=== PATIENT | female | born 1970 | race Caucasian/White ===

== ENCOUNTER → 2020-07-07 | Outpatient (CLI) | payer BC ==
--- NOTE | 2020-07-09 13:48 | RAD ---
DATE: 07/07/2020 11:12 AM EXAM: MAMMO REGINO SCREENING BILATERAL HISTORY: Screening COMPARISON: 06/12/2018, 06/21/2014 Bilateral CC and MLO views of the breasts were performed. Bilateral breast tomosynthesis was performed in CC and MLO projections. This study was interpreted with the benefit of Computerized Aided Detection (CAD). FINDINGS: Breast Density: HETERO The breast parenchyma Is heterogeneously dense, which could reduce sensitivity of mammography. Breast parenchyma level C Negative right mammogram. Left mammogram shows an asymmetry in the central posterior left breast on the CC view that needs additional imaging with spot compression view and a full-field lateral view, with possible additional ultrasound. IMPRESSION: Incomplete. Left breast needs additional imaging. BI-RADS CATEGORY: 0 INCOMPLETE: NEEDS ADDITIONAL IMAGING EVALUATION AND/OR PRIOR MAMMOGRAMS FOR COMPARISON. RECOMMENDED FOLLOW-UP: ADD ADDITIONAL IMAGING The patient will be contacted to return for additional imaging and a supplemental report will follow. PQRS compliance statement: Patient information was entered into a reminder system with a target due date for the next mammogram. Mammography is a sensitive method for finding small breast cancers, but it does not detect them all and is not a substitute for careful clinical examination. A negative mammogram does not negate a clinically suspicious finding and should not result in delay in biopsying a clinically suspicious abnormality. "Our facility is accredited by the [employer] Mammography Program."
== END ==
LOC: MAMMO 11:03
PROVIDERS: ATTEND Physician Assistant
DX: Z12.31 Encounter for screening mammogram for malignant neoplasm of breast (principal)
CPT/HCPCS: 77063; 77067

== ENCOUNTER → 2020-07-21 | Outpatient (CLI) | payer BC ==
--- NOTE | 2020-07-21 14:33 | RAD ---
Examination: 1. Left digital diagnostic mammogram. 2. Targeted left breast ultrasound INDICATION: Screening recall for asymmetry in the posterior superior left breast. COMPARISON: 07/07/2020 TECHNIQUE: A full field left ML view was obtained in addition to a left CC spot compression view. Targeted ultrasound of the superior left breast was subsequently pursued. FINDINGS: Heterogeneously dense breast parenchyma. The questioned asymmetry changes configuration in a pattern compatible with overlap of fibroglandular tissue. Targeted ultrasound superior left breast revealed no suspicious sonographic findings no definite sonographic correlate to the questioned area of asymmetry on an initial screening mammogram. IMPRESSION: Probably benign overlap of dense breast tissue in the superior posterior left breast. Recommend short-term 6 month follow-up left diagnostic mammogram with possible targeted ultrasound. BI-RADS Category 3 Probably benign mammographic and sonographic findings. Electronically signed by: Donta Choi MD (07/21/2020 2:29 PM) [id number]
== END ==
LOC: MAMMO 07:54
PROVIDERS: ATTEND Physician Assistant
DX: R92.2 Inconclusive mammogram (principal)
CPT/HCPCS: 76641; 77065

== ENCOUNTER → 2022-01-19 | Outpatient (CLI) | payer BC ==
--- NOTE | 2022-01-19 14:21 | RAD ---
DIAGNOSTIC BILATERAL BREAST MAMMOGRAM TECHNIQUE: Bilateral 2-D and 3-D digital mammography performed in the routine CC and MLO projections. Additional right exaggerated lateral CC view was provided. INDICATION: Follow-up probably benign left breast and right breast screening. COMPARISON: 07/21/2020 06/12/2018, 06/21/2014 FINDINGS: Breast Density: Category C: The breast tissue is heterogeneously dense, which could obscure detection of small masses. There are no suspicious masses, calcifications or architectural distortion. IMPRESSION: 1. No imaging evidence of malignancy. ASSESSMENT: BI-RADS 1: Negative. RECOMMENDATION: Routine annual screening mammogram. Your patient's mammogram demonstrates that she has dense breast tissue (breast density category C or D), which could hide abnormalities, and if she has other risk factors for breast cancer that have bee n identified, she might benefit from supplemental screening tests that may be suggested by you as her ordering physician. Dense breast tissue, in and of itself, is a relatively common condition. Therefo re, this information is not provided to cause undue concern, but rather to raise your awareness and t o promote discussion with your patient regarding the presence of other risk factors, in addition to d ense breast tissue. The facility will notify the patient of the results via mail. Patient information will be entered int o the mammography reminder system with a target recall date for the next mammogram. A reminder letter will be generated by the facility. Electronically signed by: Micheal Yan MD (01/19/2022 2:19 PM) [id number]
== END ==
LOC: MAMMO 12:49
PROVIDERS: ATTEND Physician Assistant
DX: R92.8 Other abnormal and inconclusive findings on diagnostic imaging of breast (principal)
CPT/HCPCS: 77066